=== PATIENT | male | born 1965 | race Caucasian/White ===

== ENCOUNTER 2017-07-18 16:53 | Emergency (ER) | payer BC ==
[~2017-07-18] VITALS: Ht 177.8 cm; Wt 85.9 kg
[~2017-07-18 16:53] MED LIST: INDOCIN25 MG PO; NORCO 7.5/321 TABLET PO; ONCE DAILY1 EACH PO
[2017-07-18] MEDS ORDERED: HYCODAN SYRUP480 ML PO (18:44)
[2017-07-18] MEDS ORDERED: DOXYCYCLINE HY100 MG PO (18:44)
[2017-07-18] MEDS ORDERED: MEDROL DOSEPAK4 MG PO (18:44)
[2017-07-18] MEDS ORDERED: PROAIR HFA8.5 GM IH (18:44)
[2017-07-18 19:08] VITALS: BP 117/87
== END 2017-07-18 19:11 | disposition home or self-care (01) ==
LOC: EME 16:53
DX: J40 Bronchitis, not specified as acute or chronic (principal); H66.92 Otitis media, unspecified, left ear; R91.1 Solitary pulmonary nodule; F17.200 Nicotine dependence, unspecified, uncomplicated; Z71.6 Tobacco abuse counseling
CPT/HCPCS: 71046; 94640; 94664; 99281; 99283